=== PATIENT | male | born 1985 | race Caucasian/White ===

== ENCOUNTER 2025-08-18 04:59 | Emergency (ER) | payer OTHER ==
[~2025-08-18] VITALS: Ht 180.3 cm; Wt 70.0 kg
[2025-08-18 05:19] VITALS: TEMP 97.3
[2025-08-18] MEDS: BACITRACIN 0.9 GM PACKET OINTMENT TP ONE (07:04)
[2025-08-18 08:38] VITALS: BP 123/89; PULSE 86; RESP 16; O2SAT 100
== END 2025-08-18 08:39 ==
LOC: EMS 05:01
DX: S92.012A Displaced fracture of body of left calcaneus, initial encounter for closed fracture (principal); S60.512A Abrasion of left hand, initial encounter; S90.811A Abrasion, right foot, initial encounter; F19.10 Other psychoactive substance abuse, uncomplicated; Z65.3 Problems related to other legal circumstances; Z59.00 Homelessness unspecified; X58.XXXA Exposure to other specified factors, initial encounter; Y93.89 Activity, other specified; Y92.89 Other specified places as the place of occurrence of the external cause; Y99.8 Other external cause status
CPT/HCPCS: 99283